=== PATIENT | male | born 1955 | race Caucasian/White ===

== ENCOUNTER 2017-04-04 16:18 | Inpatient (IN) ==
[2017-04-04] MEDS ORDERED: IOPAMIDOL 100 ML BOTTLE IV ONE (16:19)
[2017-04-04] MEDS ORDERED: 0.9 % SODIUM CHLORIDE 1,000 ML IV ONE ×2 (16:35→19:22)
--- NOTE | 2017-04-04 16:43 | Emergency Department Note ---
SOB HPI - General Chief Complaint: Shortness of Breath/Dyspnea Stated Complaint: Shortness of breath Time Seen by Provider: 04/04/17 16:36 - History of Present Illness Patient was sent over from [facility] for evaluation for admission for pneumonia. He is an ill for 20 days. He actually has not had much cough but he has an infiltrate on x-ray. His O2 sat is been 89. He did get some antibiotics last night and today it sounds like perhaps Rocephin IM and Zithromax. Also sounds like he was also given some IV antibiotics today. he had persistent fever. General just does not feel well. No much chest pain. No nausea or vomiting. - Related Data Home Medications Medication Instructions Recorded Confirmed Mercaptopurine 50 mg PO BID 04/04/17 04/04/17 Mesalamine [Asacol Hd] 800 mg PO BID 04/04/17 04/04/17 Metoprolol Tartrate [Lopressor] 25 mg PO DAILY 04/04/17 04/04/17 Omeprazole 20 mg PO DAILY 04/04/17 04/04/17 Verapamil HCl [Verapamil ER] 240 mg PO DAILY 04/04/17 04/04/17 Allergies Allergy/AdvReac Type Severity Reaction Status Date / Time No Known Drug Allergies Allergy Verified 04/04/17 16:22 Review of Systems All systems ED: reviewed and negative except as stated. Past Medical History - Past Medical History Medical history: Reports: other (Guillain-Jacob syndrome Souza's esophagus Crohn's disease.) Surgical history ED: Reports: orthopedic, other (Knee), other (Colonoscopy and EGD) - Social History smoking status: Never smoker Physical Exam - General Limitations: no limitations General appearance: alert, in no apparent distress - Head Head exam: atraumatic, normocephalic - Eye Eye exam: Present: normal appearance - ENT ENT exam: normal exam - Neck Neck exam: Present: normal inspection - Chest Chest inspection: Present: normal inspection - Respiratory Respiratory exam: Present: other (Scattered rhonchi) - Cardiovascular Cardiovascular exam: Present: regular rate, normal rhythm, normal heart sounds - Abdominal Exam Abdominal exam: Present: soft. Absent: distention, tenderness - Neurological Exam Neurological exam: Present: alert - Psychiatric Psychiatric exam: Present: normal affect, normal mood - Skin Skin exam: Present: warm, dry, intact Course Vital Signs Temperature 98.2 F 04/04/17 16:20 Pulse Rate 111 H 04/04/17 16:20 Respiratory Rate 20 04/04/17 16:20 Blood Pressure 132/76 04/04/17 16:20 Pulse Oximetry (%) 87 L 04/04/17 16:20 Temperature 99.8 F H 04/04/17 19:26 Pulse Rate 123 H 04/04/17 20:01 Respiratory Rate 23 H 04/04/17 20:01 Blood Pressure 147/74 04/04/17 20:01 Pulse Oximetry (%) 97 04/04/17 20:01 Shortness of Breath/Dyspnea - MDM Narrative Medical decision making narrative: CT scan confirms severe right-sided pneumonia. Patient will be admitted to the hospital by Dr. Doshi - Lab Data Lab results reviewed: Yes I reviewed the patient's lab results. Result diagrams: 04/04/17 17:13 04/04/17 17:13 Lab Results 04/04/17 04/04/17 04/04/17 Range/Units 17:13 17:13 17:13 WBC 3.3 L (4.5-11.0) K/mcL RBC 3.53 L (4.50-5.90) M/mcL Hgb 11.8 L (13.5-16.5) g/dL Hct 34.4 L (41.0-55.0) % POC Hct (41.0-55.0) % MCV 97.4 (80.0-100.0) fL MCH 33.3 (26.0-34.0) pg MCHC 34.2 (31.0-36.0) g/dL RDW 16.5 H (11.5-14.5) % Plt Count 131 L (140-440) K/mcL MPV 12.6 H (7.4-10.4) fL Gran % 82.0 H (38.0-78.0) % Lymph % (Auto) 12.1 L (15.5-49.0) % Grant % (Auto) 5.7 (1.0-12.0) % Eos % (Auto) 0.1 (0.0-7.0) % Baso % (Auto) 0.1 (0.0-2.0) % Gran # 2.7 (1.8-8.0) K/mcL Lymph # (Auto) 0.4 L (1.5-4.8) K/mcL Grant # (Auto) 0.2 (0.1-0.9) K/mcL Eos # (Auto) 0 (0.0-0.7) K/mcL Baso # (Auto) 0 (0.0-0.3) K/mcL VBG Lactic Acid 1.3 (0.5-2.2) mmol/L POC Sodium (133-145) mmol/L Sodium 133 (133-145) mmol/L POC Potassium (3.3-5.1) mmol/L Potassium 3.8 (3.3-5.1) mmol/L POC Chloride (96-108) mmol/L Chloride 98 (96-108) mmol/L Carbon Dioxide 23 (22-30) mmol/L POC Total CO2 (22-30) mmol/L Anion Gap 12.0 (8-16) POC BUN (6-20) mg/dl BUN 16 (6-20) mg/dl Creatinine 0.9 (0.7-1.2) mg/dl POC Creatinine (0.7-1.2) mg/dl GFR Calculation 93 Glucose 102 (70-105) mg/dL POC Glucose (70-105) mg/dL Calcium 8.8 (8.6-10.4) mg/dl POC WB Ioniz Calcium (1.16-1.32) mmol/L Total Bilirubin 1.6 H (0.0-1.0) mg/dL AST 143 H (0-37) U/l ALT 176 H (0-40) U/l Alkaline Phosphatase 343 H (39-117) U/L Total Protein 6.2 (5.9-8.4) gm/dL Albumin 2.7 L (3.2-5.2) gm/dL Globulin 3.5 (2.2-3.7) gm/dL Albumin/Globulin Ratio 0.8 L (1.0-2.3) 04/04/17 Range/Units 17:57 WBC (4.5-11.0) K/mcL RBC (4.50-5.90) M/mcL Hgb (13.5-16.5) g/dL Hct (41.0-55.0) % POC Hct 38.0 L (41.0-55.0) % MCV (80.0-100.0) fL MCH (26.0-34.0) pg MCHC (31.0-36.0) g/dL RDW (11.5-14.5) % Plt Count (140-440) K/mcL MPV (7.4-10.4) fL Gran % (38.0-78.0) % Lymph % (Auto) (15.5-49.0) % Grant % (Auto) (1.0-12.0) % Eos % (Auto) (0.0-7.0) % Baso % (Auto) (0.0-2.0) % Gran # (1.8-8.0) K/mcL Lymph # (Auto) (1.5-4.8) K/mcL Grant # (Auto) (0.1-0.9) K/mcL Eos # (Auto) (0.0-0.7) K/mcL Baso # (Auto) (0.0-0.3) K/mcL VBG Lactic Acid (0.5-2.2) mmol/L POC Sodium 135 (133-145) mmol/L Sodium (133-145) mmol/L POC Potassium 3.8 (3.3-5.1) mmol/L Potassium (3.3-5.1) mmol/L POC Chloride 101 (96-108) mmol/L Chloride (96-108) mmol/L Carbon Dioxide (22-30) mmol/L POC Total CO2 23 (22-30) mmol/L Anion Gap (8-16) POC BUN 15 (6-20) mg/dl BUN (6-20) mg/dl Creatinine (0.7-1.2) mg/dl POC Creatinine 0.8 (0.7-1.2) mg/dl GFR Calculation Glucose (70-105) mg/dL POC Glucose 96 (70-105) mg/dL Calcium (8.6-10.4) mg/dl POC WB Ioniz Calcium 1.18 (1.16-1.32) mmol/L Total Bilirubin (0.0-1.0) mg/dL AST (0-37) U/l ALT (0-40) U/l Alkaline Phosphatase (39-117) U/L Total Protein (5.9-8.4) gm/dL Albumin (3.2-5.2) gm/dL Globulin (2.2-3.7) gm/dL Albumin/Globulin Ratio (1.0-2.3) - Radiology Data Radiology results reviewed: Yes I reviewed the patient's radiology results. Disposition Pt seen by [facility]/PA only: No Clinical Impression: Community acquired pneumonia Disposition: Xfer As Inpt ([facility]) Condition: Good Time of Disposition: 20:30
--- NOTE | 2017-04-04 17:38 | XRay Report ---
CLINICAL INFORMATION: Shortness of breath COMPARISON: None. FINDINGS: Heart size, mediastinum and pulmonary vessels are normal. Is minor bibasilar atelectasis. Tiny bilateral pleural effusions noted IMPRESSION: Minor bibasilar atelectasis and small bilateral pleural effusions. Please consider pulmonary embolus Interpreted and Authenticated by: Sandeep Henley 04/04/17
[2017-04-04 17:56] LABS: ALT/SGPT 176 U/l (0-40); Albumin 2.7 gm/dL (3.2-5.2); Albumin/Globulin Ratio 0.8 (1.0-2.3); Alkaline Phosphatase 343 U/L (39-117); Blood Urea Nitrogen 16 mg/dl (6-20)
[2017-04-04] MEDS ORDERED: ACETAMINOPHEN 325 MG TABLET PO ONE ×2 (17:59→18:06)
[2017-04-04 18:21] LABS: Basophils # (Auto) 0 K/mcL (0.0-0.3); Basophils % (Auto) 0.1 % (0.0-2.0); Eosinophils # (Auto) 0 K/mcL (0.0-0.7); Eosinophils % (Auto) 0.1 % (0.0-7.0); Lymphocytes # (Auto) 0.4 K/mcL (1.5-4.8); Lymphocytes % (Auto) 12.1 % (15.5-49.0); Mean Cell Volume 97.4 fL (80.0-100.0); Mean Corpuscular HGB Conc 34.2 g/dL (31.0-36.0); Mean Corpuscular Hemoglobin 33.3 pg (26.0-34.0); Monocytes # (Auto) 0.2 K/mcL (0.1-0.9); Monocytes % (Auto) 5.7 % (1.0-12.0); Platelet Count 131 K/mcL (140-440); RBC 3.53 M/mcL (4.50-5.90); Red Cell Distribution Width 16.5 % (11.5-14.5)
[2017-04-04] MEDS ORDERED: IPRATROPIUM/ALBUTEROL 3 ML AMPUL.NEB NEB ONE (18:47)
[2017-04-04] MEDS ORDERED: IBUPROFEN 800 MG TABLET PO ONE (19:26)
[2017-04-04] MEDS ORDERED: IBUPROFEN 600 MG TABLET PO ONE (19:28)
[2017-04-04] MEDS ORDERED: IBUPROFEN 200 MG TABLET PO ONE (19:33)
--- NOTE | 2017-04-04 19:33 | Cat Scan Report ---
CLINICAL INFORMATION: Cough and chest pain COMPARISON: None TECHNIQUE: Axial images obtained through the chest. 80 cc intravenous contrast administration was administered, and scanning was performed during pulmonary arterial phase. Sagittally and coronally reformatted images were obtained. MIP reformatted images. FINDINGS: Mediastinal windows show the pulmonary arteries are suboptimally opacified, but no evidence of embolus. Thoracic aorta is unremarkable. The heart is borderline enlarged with scattered atherosclerotic plaque in the coronary arteries. Soft tissues are grossly normal. There is no adenopathy in the mediastinal, hilar or axillary regions The thyroid is normal. Pulmonary parenchymal windows show moderate sized patchy groundglass infiltrates in the peripheral upper, right middle and lower lobes. Small bilateral pleural effusions. IMPRESSION: Moderate sized patchy alveolar infiltrates in the peripheral upper, right middle and lower lobes. This is likely bacterial infection but could indicate aspiration. No evidence of pulmonary embolus Interpreted and Authenticated by: Sandeep Henley 04/04/17
[2017-04-04] MEDS ORDERED: PIPERACILLIN SODIUM/TAZOBACTAM 3.375 GM in DEXTROSE 5% IN WATER 50 ML IV ONE (19:41)
[2017-04-04] MEDS ORDERED: LEVOFLOXACIN 500 MG/100 ML BAG IV ONE (19:41)
[2017-04-04] MEDS ORDERED: VANCOMYCIN 1,000 MG in 0.9 % SODIUM CHLORIDE 250 ML IV ONE (19:41)
--- NOTE | 2017-04-04 21:03 | Internal Med History&Physical ---
Medical - H&P: HPI Patient information: Note initiated : 04/04/17 at 8:58 pm Service Date, if different from initiated Date: [] Patient: Matt Jin a 62 y/o M admitted on for Shortness of breath. Chief Complaint: [] History of present illness: Mr. Jin is a 62 year old Male with h/o crohns disease who presents to the ER with complaints of not feeling well for last approximately 20 days. The patient notes that his symptoms started as subjective sensation of not feeling well, low grade temperature which would respond to tylenol and preet shoulder rt > left soreness. The patient symptoms progrossively got worse and he developed some dry cough. The patient was supposedly seen by his PCP who did some blood work and did not find anything abnormal. Thinking this is just viral syndrome advised patient rest. The patient condition worsened and he started to have fever with chills and fatigue. The patient was seen at [facility] [place] where he had Chest x ray read as atelectasis vs pna, he was given zithromax and IM rocephin yesterday, the patient did not improve and went back to [facility], the patient was then asked to come to the ER for further evaluation The patient labs showed some mildly low wbc, mild anemia and mild thrombocytopenia, 82% neurtophils, normal basic, but elevated lft, patient has normal lactic acid. In the ER the patient became febrile and he was also hypoxic on presentaiton with HR in 10-130 Initial CXR was reported as negative, CTA was neg fo PE but positive for pna on the ight side, The patient was admitted to the hospital for further management I explained to the patient, his and the son, that the patient is sick given his increased oxygen needs, elevated heart rate, as well as immunocompromised status. Also the fact that he has been sick for a while. Explained that patient may get worse before he gets better and they are ok with intubating the patient if needed. However should the patients condition worsen, they would prefer we transfer the patient to [place] for further management. Review of systems: CONSTITUTIONAL: No weight loss, present fever/ chills/ weakness and fatigue. HEENT: Eyes: No visual loss, Prsent chr blurred vision, NO double vision or yellow sclerae. Ears, Nose, Throat: No hearing loss, sneezing, congestion, runny nose or sore throat. SKIN: No rash or itching. CARDIOVASCULAR: No chest pain, chest pressure or chest discomfort. No palpitations or edema. RESPIRATORY: No shortness of breath, but has dry cough no sputum. GASTROINTESTINAL: No nausea, vomiting or diarrhea , but has chronic constipation. No abdominal pain or blood in stools No Siabelle. GENITOURINARY: Denies Burning on urination. Blood in urine, or foul smelling urine NEUROLOGICAL: has chr headaches, some dizziness, No syncope or paralysis,no tremors,no numbness. No change in bowel or bladder control. MUSCULOSKELETAL: No muscle, back pain, joint pain or stiffness. (shoulder soreness preet, right > left) HEMATOLOGIC: No bleeding or bruising. No enlarged nodes PSYCHIATRIC: No depression , but does have anxiety. ENDOCRINOLOGIC: No reports of sweating, cold or heat intolerance. No polyuria or polydipsia. ALLERGIES: No hives, eczema or rhinitis. Skin: No rash, no jaundice, cyanosis or pallor. Medical - H&P: PMH Medical history: crohns disease htn barrets esophagus h/o GBS syndrome Surgical history: Hernia s knee sx Pertinent family history: dad with multiple aneurysms Mom iwth parkinsons disase Brother Liver / pancras not working,on liver transplant list? Social history: lives with denies smoking etoh 2-3 time a week denies thc use or any other substance abuse. Medical - H&P: Meds Home Medications Medication Instructions Recorded Confirmed Type Mercaptopurine 50 mg PO BID 04/04/17 04/04/17 History Mesalamine [Asacol Hd] 800 mg PO BID 04/04/17 04/04/17 History Metoprolol Tartrate [Lopressor] 25 mg PO DAILY 04/04/17 04/04/17 History Omeprazole 20 mg PO DAILY 04/04/17 04/04/17 History Verapamil HCl [Verapamil ER] 240 mg PO DAILY 04/04/17 04/04/17 History Allergies Allergy/AdvReac Type Severity Reaction Status Date / Time No Known Drug Allergies Allergy Verified 04/04/17 16:22 Medical - H&P: Exam - Constitutional Vitals: Temp Pulse Resp BP Pulse Ox 99.8 F H 123 H 23 H 147/74 97 04/04/17 19:26 04/04/17 20:01 04/04/17 20:01 04/04/17 20:01 04/04/17 20:01 Exam: GENERAL: The patient is a well-developed, well-nourished in no apparent distress. Is alert and oriented x3. VITAL SIGNS: Reviewed and as noted elsewhere. HEENT: Head is normocephalic and atraumatic. Extraocular muscles are intact. Pupils are equal, round, and reactive to light. Nares appeared normal. Mouth appears any without lesions. Mucous membranes are moist. NECK: Normal to inspection, Supple, No lymphadenopathy or thyromegaly. LUNGS: Air entry equal on both sides, no wheezing, crackles or rhonchi noted. No accessory muscles of respiration, tachypenic breathing HEART: tachycardic rate and rhythm normal, S1 and S2 heard, no Gallop, S3 or Rub Noted, No Gross murmur heard. ABDOMEN: Soft, nontender, and nondistended. Positive bowel sounds. No hepatosplenomegaly was noted. EXTREMITIES: No cyanosis, clubbing, rash, lesions or edema. NEUROLOGIC: Cranial nerves II through XII are grossly intact. Motor and Sensory System Grossly Intact PSYCHIATRIC: Normal affect, Normal Mood. Appropriate Behavior. SKIN: No ulceration or wounds noted, No jaundice, No rash noted. Medical - H&P: Reslt - Labs CBC & Chem 7: 04/04/17 17:13 04/04/17 17:13 Labs: Short CBC 04/04/17 Range/Units 17:13 WBC 3.3 L (4.5-11.0) K/mcL Hgb 11.8 L (13.5-16.5) g/dL Hct 34.4 L (41.0-55.0) % Plt Count 131 L (140-440) K/mcL BMP 04/04/17 17:13 Sodium 133 Potassium 3.8 Chloride 98 Carbon Dioxide 23 BUN 16 Creatinine 0.9 Glucose 102 Calcium 8.8 Liver Function 04/04/17 Range/Units 17:13 Total Bilirubin 1.6 H (0.0-1.0) mg/dL AST 143 H (0-37) U/l ALT 176 H (0-40) U/l Alkaline Phosphatase 343 H (39-117) U/L Albumin 2.7 L (3.2-5.2) gm/dL Medical - H&P: A/P (1) Current visit: No (2) Current visit: No (3) Current visit: No (4) Current visit: No (5) Community acquired pneumonia Current visit: Yes Status: Acute - Narrative A/P Narrative: A/P Acute hypoxic Resp failure/ Community Acquired pneumonia: Was given rocephin and zithromax as outpatient but did nto respond well, given his immunocompromised status, will use broad spectrum abx, vanco/ zosyn and zithromax Check for urine legionella, mycoplasma On 4-5L oxygen at this time, consider bipap if hypoxia worsens, ok to intubateyd if in resp distress. Send blood cx, sputum cx, sputum for PCP pna (given immunocompromised status) RT to induce sputum. Deescalate antibiotics if cultures positive. Sepsis: Due to PNA. IV ABX and fluids, bp is normal, but HR is elevated, pt is febrile, hopefully HR will improve with fluids, and improvement in fever. Monitor closely. Lactic acid is normal. BAnds present on labs done outside Abnormal liver function test: ast, alt and alk phos are all elevated, pt unaware of any previous abnl labs. Will get liver usg in AM to r/o any liver pathology. HTN: Hold bp meds for now, resume once patient is hemodynamically stable Crohns disease: Hold immunosuppresant drugs for now, resume once infectin is better controlled Pancytopenia: patient had normal platelts few days ago, this is likely secondary to his sepsis, likely some low counts secondary to immunosuppresants. DVT hep sq Full code Regular diet
[2017-04-04] MEDS ORDERED: NALOXONE HCL 0.4 MG/ML VIAL IV PRN (21:23)
[2017-04-04] MEDS ORDERED: ACETAMINOPHEN 325 MG TABLET PO PRN (21:23)
[2017-04-04] MEDS ORDERED: VANCOMYCIN PER PHARMACY IV SCH (21:23)
[2017-04-04] MEDS ORDERED: ONDANSETRON 4 MG/2 ML VIAL IV PRN (21:23)
[2017-04-04] MEDS: IPRATROPIUM/ALBUTEROL 3 ML AMPUL.NEB NEB SCH (23:15)
[2017-04-04] MEDS: 0.9 % SODIUM CHLORIDE 1,000 ML IV SCH (23:16)
[2017-04-04] MEDS: HEPARIN 5,000 UNIT/ML VIAL SQ SCH (23:17)
[2017-04-05] MEDS ORDERED: PIPERACILLIN SODIUM/TAZOBACTAM 3.375 GM VIAL IV ONE ×2 (00:34→05:52)
[2017-04-05] MEDS: PIPERACILLIN SODIUM/TAZOBACTAM 3.375 GM in DEXTROSE 5% IN WATER 50 ML IV SCH ×4 (00:38→18:34)
[2017-04-05] MEDS ORDERED: IBUPROFEN 200 MG TABLET PO PRN (02:27)
[2017-04-05] MEDS ORDERED: ACETAMINOPHEN 1,000 MG/100 ML BOTTLE IV ONE (02:28)
[2017-04-05] MEDS: IPRATROPIUM/ALBUTEROL 3 ML AMPUL.NEB NEB SCH ×6 (02:34→22:42)
[2017-04-05] MEDS ORDERED: IBUPROFEN 200 MG TABLET PO ONE (02:48)
[2017-04-05 06:13] LABS: Basophils # (Auto) 0 K/mcL (0.0-0.3); Basophils % (Auto) 0.3 % (0.0-2.0); Eosinophils # (Auto) 0 K/mcL (0.0-0.7); Eosinophils % (Auto) 0.8 % (0.0-7.0); Granulocytes % (Auto) 77.2 % (38.0-78.0); Lymphocytes # (Auto) 0.3 K/mcL (1.5-4.8); Mean Corpuscular HGB Conc 34.6 g/dL (31.0-36.0); Mean Corpuscular Hemoglobin 33.5 pg (26.0-34.0); Monocytes # (Auto) 0.2 K/mcL (0.1-0.9); Monocytes % (Auto) 9.7 % (1.0-12.0); Platelet Count 125 K/mcL (140-440); RBC 3.24 M/mcL (4.50-5.90); Red Cell Distribution Width 16.4 % (11.5-14.5)
[2017-04-05 06:31] LABS: ALT/SGPT 147 U/l (0-40); Albumin 2.6 gm/dL (3.2-5.2); Albumin/Globulin Ratio 0.9 (1.0-2.3); Alkaline Phosphatase 310 U/L (39-117); Bilirubin,Direct 1.1 mg/dL (0.0-0.3); Blood Urea Nitrogen 14 mg/dl (6-20); Gamma Glutamyl Transpeptidase 206 U/L (8-61); Magnesium 1.8 mg/dL (1.6-2.5); Uric Acid 2.8 mg/dL (2.5-8.0)
[2017-04-05] MEDS: PANTOPRAZOLE 40 MG TABLET PO SCH (07:09)
[2017-04-05] MEDS: VANCOMYCIN 1,000 MG in 0.9 % SODIUM CHLORIDE 250 ML IV SCH ×2 (09:16→20:51)
[2017-04-05] MEDS: AZITHROMYCIN 250 MG TABLET PO SCH (09:24)
[2017-04-05] MEDS: HEPARIN 5,000 UNIT/ML VIAL SQ SCH ×2 (09:24→20:52)
--- NOTE | 2017-04-05 10:02 | Ultrasound Report ---
CLINICAL INFORMATION: Abnormal LFTs COMPARISON: None. FINDINGS: Liver is diffusely hyperechoic compatible fatty change or other global parenchymal process. No focal hepatic lesions. Gallbladder and bile ducts are normal CBD is 3 mm. Pancreas is unremarkable. IMPRESSION: Hyperechoic liver compatible with fatty change or other diffuse parenchymal process. Interpreted and Authenticated by: Sandeep Henley 04/05/17
[2017-04-05] MEDS: 0.9 % SODIUM CHLORIDE 1,000 ML IV SCH ×2 (10:14→22:44)
[2017-04-05] MEDS ORDERED: POTASSIUM PHOSPHATE 40 MEQ in DEXTROSE 5% IN WATER 500 ML IV ONE (12:15)
--- NOTE | 2017-04-05 12:56 | XRay Report ---
CLINICAL INFORMATION: Abdominal distention COMPARISON: None. FINDINGS: The colon is mildly dilated and contains a moderate amount of gas. No wall thickening. Stomach and small bowel are grossly normal. No free air or soft tissue mass. No pathologic calcification IMPRESSION: Mild ileus Interpreted and Authenticated by: Sandeep Henley 04/05/17
[2017-04-05] MEDS: ACETAMINOPHEN 650 MG/65 ML BOTTLE IV PRN ×2 (13:00→20:52)
[2017-04-05] MEDS: KETOROLAC 15 MG/ML VIAL IV PRN (13:53)
--- NOTE | 2017-04-05 14:05 | Internal Med Progress Note ---
Medical - PN: Subj Patient information: Note initiated : 04/05/17 at 2:04 pm Patient: Matt Jin 62 y/o M admitted on 04/04/17 for Shortness of Breath/ Pneumonia. Interval history: April 04, 2017:History of present illness: Mr. Jin is a 62 year old Male with h/o crohns disease who presents to the ER with complaints of not feeling well for last approximately 20 days. The patient notes that his symptoms started as subjective sensation of not feeling well, low grade temperature which would respond to tylenol and preet shoulder rt > left soreness. The patient symptoms progrossively got worse and he developed some dry cough. The patient was supposedly seen by his PCP who did some blood work and did not find anything abnormal. Thinking this is just viral syndrome advised patient rest. The patient condition worsened and he started to have fever with chills and fatigue. The patient was seen at [facility] [place] where he had Chest x ray read as atelectasis vs pna, he was given zithromax and IM rocephin yesterday, the patient did not improve and went back to [facility], the patient was then asked to come to the ER for further evaluation The patient labs showed some mildly low wbc, mild anemia and mild thrombocytopenia, 82% neurtophils, normal basic, but elevated lft, patient has normal lactic acid. In the ER the patient became febrile and he was also hypoxic on presentaiton with HR in 10-130 Initial CXR was reported as negative, CTA was neg fo PE but positive for pna on the right side, The patient was admitted to the hospital for further management. I explained to the patient, his and the son, that the patient is sick given his increased oxygen needs, elevated heart rate, as well as immunocompromised status. Also the fact that he has been sick for a while. Explained that patient may get worse before he gets better and they are ok with intubating the patient if needed. However should the patients condition worsen, they would prefer we transfer the patient to [place] for further management. April 05: Today, the patient says he still feels quite fatigued. He may feel a little better than yesterday, but is not very convincing. He still has a very poor appetite. He notes he has had some occasional mild headaches recently, but those have mostly resolved. He denies neck stiffness. He denies recent earaches toothaches sinus symptoms or sore throat. He continues to have mild dyspnea with even minimal exertion. His cough has not been especially productive. He denies abdominal pain, nausea or vomiting, but his notes that his abdomen seems more distended than usual. He has a history of chronic intermittent diarrhea related to Crohn's disease. He denies dysuria. Overnight, he has remained febrile, in spite of Tylenol and ibuprofen. T-max 104.4. He also remains fairly tachycardic and tachypneic. However he is maintaining O2 saturations with 4 or 5 L nasal cannula. He continues to be fairly pancytopenic on today's labs. Serum bicarbonate is fallen. Liver function tests remain elevated, but are slightly improved compared to yesterday. Mycoplasma pneumonia screen is negative. - Constitutional Vitals: Vital Signs Temp Pulse Resp BP Pulse Ox 102.4 F H 128 H 24 H 158/87 93 04/05/17 13:00 04/05/17 12:00 04/05/17 12:00 04/05/17 12:00 04/05/17 12:00 Period Temp Pulse Resp BP Sys/Soria Pulse Ox Last 24 Hr 98.5 F-106.0 F 110-129 22-36 118-158/73-87 88-95 Intake and Output 04/05/17 04/05/17 04/05/17 05:59 13:59 21:59 Intake Total 850 / 850 2265 / 2265 Output Total 1275 / 1275 Balance -425 / -425 2265 / 2265 Intake & Output: Intake & Output 04/05/17 04/05/17 04/05/17 05:59 13:59 21:59 Intake Total 850 / 850 2265 / 2265 Output Total 1275 / 1275 Balance -425 / -425 2265 / 2265 Intake: IV 50 / 50 1315 / 1315 Sodium Chloride 0.9% 1, 1000 / 1000 000 ml @ 100 mls/hr IV . Q10H [facility] Rx#:[id number] Oral 800 / 800 950 / 950 Output: Urine Catheter Amount 150 / 150 Void Amount 800 / 800 Stool 325 / 325 On exam, he is a well-developed well-nourished man, who appears fatigued, but is otherwise awake and alert and cooperative. He becomes dyspneic even with trying to sit up for a lung exam. Current temperature 101.7, heart rate 121, respiratory rate 25, blood pressure 158/87, O2 saturation 93% on 5 L nasal cannula Neck is supple without obvious lymphadenopathy or JVD. Cardiac exam shows regular rate and rhythm without obvious murmurs. Lungs: Show soft crackles in both lower lung steele posteriorly, but no significant wheezing or rhonchi. Breath sounds are rather decreased at the bases, more so on the right. There is no accessory muscle use. Abdomen: Is somewhat distended, but nontender. Bowel sounds are normoactive. Extremities: Show minimal edema. Skin exam: No rashes are noted. Neurologic exam: Is grossly nonfocal. Medical - PN: Obj Da - Labs CBC & Chem 7: 04/05/17 03:36 04/05/17 03:36 Labs: Abnormal Lab Results 04/05/17 04/05/17 03:36 03:36 WBC 2.4 L RBC 3.24 L Hgb 10.9 L Hct 31.5 L RDW 16.4 H Plt Count 125 L MPV 13.2 H Lymph % (Auto) 12.0 L Lymph # (Auto) 0.3 L Carbon Dioxide 19 L Calcium 8.3 L Phosphorus 1.9 L Total Bilirubin 1.7 H Direct Bilirubin 1.1 H GGT 206 H AST 132 H ALT 147 H Alkaline Phosphatase 310 H Lactate Dehydrogenase 348 H Total Protein 5.6 L Albumin 2.6 L Albumin/Globulin Ratio 0.9 L Triglycerides 254 H April 05: Abdominal x-ray: Shows mildly dilated colon consistent with mild ileus. April 04: CBC: White blood cell count is low at 3300, hemoglobin 11.8, hematocrit 34.4, RDW 16, platelets 131,000, differential shows 400 lymphocytes. Lactic acid was normal at 1.3 Liver function test: AST is elevated at 143, ALT 176, alkaline phosphatase 343, albumin 2.7 Mycoplasma IgM is negative. Legionella antigen is pending. Urine culture is negative so far. Sputum smear for pneumocystis esvin is negative. Stool screen for C. difficile is negative. Sputum culture is pending. Meds: Medications Hydrocodone Bitart/Acetaminophen ([place] 5/325mg) 1 tab PO Q4HP PRN PRN Reason: Pain Albuterol/Ipratropium (Duoneb) 3 ml NEB Q4HRT [facility] Last Admin: 04/05/17 11:09 Dose: 3 ml Azithromycin (Zithromax) 250 mg PO DAILY [facility] Stop: 04/08/17 09:01 Last Admin: 04/05/17 09:24 Dose: 250 mg Heparin Sodium (Porcine) (Heparin) 5,000 unit SQ Q12 [facility] Last Admin: 04/05/17 09:24 Dose: 5,000 unit Sodium Chloride (Sodium Chloride 0.9%) 1,000 mls @ 100 mls/hr IV .Q10H [facility] Stop: 04/06/17 03:22 Last Admin: 04/05/17 10:14 Dose: 100 mls/hr Piperacillin Sod/Tazobactam (Sod 3.375 gm/ Dextrose) 50 mls @ 100 mls/hr IV Q6H [facility] Last Admin: 04/05/17 12:10 Dose: 100 mls/hr Vancomycin HCl 1,000 mg/ (Sodium Chloride) 250 mls @ 250 mls/hr IV Q12H [facility] Last Admin: 04/05/17 09:16 Dose: 250 mls/hr Acetaminophen (Ofirmev) 650 mg in 65 mls @ 130 mls/hr IV Q6HP PRN PRN Reason: PAIN/FEVER > 101 Last Infusion: 04/05/17 13:57 Dose: Infused Potassium Phosphate 40 meq/ (Dextrose) 509.0909 mls @ 127.273 mls/hr IV ONCE ONE Stop: 04/05/17 16:14 Last Admin: 04/05/17 13:24 Dose: 127.273 mls/hr Ketorolac Tromethamine (Toradol) 15 mg IV Q6HP PRN PRN Reason: Fever Stop: 04/07/17 11:54 Last Admin: 04/05/17 13:53 Dose: 15 mg Naloxone HCl (Narcan) 0.1 mg IV Q2MIN PRN PRN Reason: Opiate Reversal Ondansetron HCl (Zofran) 4 mg IV Q4HP PRN PRN Reason: Nausea And Vomiting Pantoprazole Sodium (Protonix) 40 mg PO QAMAC [facility] Last Admin: 04/05/17 07:09 Dose: 40 mg Vancomycin HCl (Vancomycin Per Pharmacy) 1 order IV UD [facility] Medical - PN: A/P - Time Spent With Patient Total time spent is greater than 50% in coordination of care (as documented) at patient's floor/unit and/or counseling patient: Greater than 35 minutes - Narrative A/P Narrative: #1. Pulmonary/infectious disease - acute hypoxic Resp failure/ Community Acquired pneumonia: Was given rocephin and zithromax as outpatient but did nto respond well, given his immunocompromised status, will use broad spectrum abx, vanco/ zosyn and zithromax Screens for mycoplasma and pneumocystis are negative so far. Legionella is pending. -Again reviewed with the patient and his and son, that he could get worse before he gets better. They confirmed that he would accept ventilator management if he continues to decline. -Patient is pancytopenic, and chronically immunosuppressed regarding Crohn's medications. However his lymphocyte count is quite low, and we may want to screen for HIV as well. On 4-5L oxygen at this time, consider bipap if hypoxia worsens. Deescalate antibiotics if cultures positive. #2. Sepsis: - Due to PNA. Signs and symptoms appear to be improving. #3. GI. Abnormal liver function test: ast, alt and alk phos are all elevated, pt unaware of any previous abnl labs. -Labs are mildly improved today. -Liver sonogram shows possible diffuse parenchymal process such as fatty changes , but was otherwise fairly unremarkable. Crohns disease: -Hold immunosuppresant drugs for now, resume once infection is better controlled #4. HTN: - Hold bp meds for now, resume once patient is hemodynamically stable #5. Hematologic. Pancytopenia: patient had normal platelts few days ago, this is likely secondary to his sepsis, likely some low counts secondary to immunosuppresants. #6. DVT hep sq #7. CODE STATUS: Full code #8. Renal. Phosphorus is a bit on the low side today. CO2 is also low, and potassium is borderline low. -Add IV potassium phosphate. Do need to monitor. Approximately 35 minutes has been spent so far today, reviewing the patient's records and test results, interviewing and examining the patient, reviewing plan of care with the patient, his family, and staff. Medical - PN: Qual - VTE Deep Vein Thrombosis/Pulmonary Embolism Present on Admission: No
[2017-04-05] MEDS ORDERED: methylPREDNISolone SOD SUCC 125 MG/2 ML VIAL IV ONE (15:48)
[2017-04-05] MEDS: HYDROcodone/APAP 5/325MG TABLET PO PRN (16:04)
[2017-04-06] MEDS: PIPERACILLIN SODIUM/TAZOBACTAM 3.375 GM in DEXTROSE 5% IN WATER 50 ML IV SCH ×5 (00:31→23:27)
[2017-04-06] MEDS: IPRATROPIUM/ALBUTEROL 3 ML AMPUL.NEB NEB SCH ×6 (03:23→23:25)
[2017-04-06] MEDS: ACETAMINOPHEN 650 MG/65 ML BOTTLE IV PRN ×2 (05:14→21:59)
[2017-04-06 07:22] LABS: ALT/SGPT 141 U/l (0-40); Albumin 2.6 gm/dL (3.2-5.2); Albumin/Globulin Ratio 0.8 (1.0-2.3); Alkaline Phosphatase 336 U/L (39-117); Bilirubin,Direct 0.7 mg/dL (0.0-0.3); Blood Urea Nitrogen 12 mg/dl (6-20); Gamma Glutamyl Transpeptidase 225 U/L (8-61); Magnesium 2.1 mg/dL (1.6-2.5); Uric Acid 2.3 mg/dL (2.5-8.0)
[2017-04-06] MEDS: PANTOPRAZOLE 40 MG TABLET PO SCH (08:13)
[2017-04-06] MEDS: 0.9 % SODIUM CHLORIDE 10 ML SYRINGE IV SCH ×6 (08:15→21:49)
[2017-04-06 09:01] LABS: Mean Cell Volume 96.3 fL (80.0-100.0); Mean Corpuscular HGB Conc 35.2 g/dL (31.0-36.0); Mean Corpuscular Hemoglobin 33.9 pg (26.0-34.0); Platelet Count 124 K/mcL (140-440); RBC 3.36 M/mcL (4.50-5.90); Red Cell Distribution Width 16.5 % (11.5-14.5)
[2017-04-06 09:04] LABS: Anisocytosis 1+ (NONE SEEN); Band Neutrophils % 9 % (0-10); Lymphocytes % 8 % (15-49); Monocytes % (Manual) 5 % (1-12); Platelet Estimate DECREASED (NORMAL); RBC Morphology ABNORM (NORMAL); Segmented Neutrophils % 78 % (38-78)
--- NOTE | 2017-04-06 09:12 | XRay Report ---
CLINICAL INFORMATION: Follow infiltrate COMPARISON: 04/04/2017 FINDINGS: Heart size, mediastinum and pulmonary vessels are normal. There is now moderate alveolar airspace disease throughout both mid and lower lungs - more prominent on the left side. This is new since exam two days prior. No definite effusion IMPRESSION: Moderate sized alveolar airspace disease throughout the mid and lower lungs - slightly more prominent on left side. Consider ARDS or aspiration Interpreted and Authenticated by: Sandeep Henley 04/06/17
[2017-04-06] MEDS: HEPARIN 5,000 UNIT/ML VIAL SQ SCH ×2 (09:42→21:49)
[2017-04-06] MEDS: AZITHROMYCIN 250 MG TABLET PO SCH (09:42)
[2017-04-06] MEDS: VANCOMYCIN 1,500 MG in 0.9 % SODIUM CHLORIDE 500 ML IV SCH ×2 (10:14→21:48)
[2017-04-06] MEDS: KETOROLAC 15 MG/ML VIAL IV PRN ×2 (12:39→17:54)
--- NOTE | 2017-04-06 13:23 | Internal Med Progress Note ---
Medical - PN: Subj Patient information: Note initiated : 04/06/17 at 1:23 pm Patient: Matt Jin 62 y/o M admitted on 04/04/17 for Shortness of Breath/ Pneumonia. Interval history: April 04, 2017:History of present illness: Mr. Jin is a 62 year old Male with h/o crohns disease who presents to the ER with complaints of not feeling well for last approximately 20 days. The patient notes that his symptoms started as subjective sensation of not feeling well, low grade temperature which would respond to tylenol and preet shoulder rt > left soreness. The patient symptoms progrossively got worse and he developed some dry cough. The patient was supposedly seen by his PCP who did some blood work and did not find anything abnormal. Thinking this is just viral syndrome advised patient rest. The patient condition worsened and he started to have fever with chills and fatigue. The patient was seen at located within [facility] [place] where he had Chest x ray read as atelectasis vs pna, he was given zithromax and IM rocephin yesterday, the patient did not improve and went back to [facility], the patient was then asked to come to the ER for further evaluation The patient labs showed some mildly low wbc, mild anemia and mild thrombocytopenia, 82% neurtophils, normal basic, but elevated lft, patient has normal lactic acid. In the ER the patient became febrile and he was also hypoxic on presentaiton with HR in 10-130 Initial CXR was reported as negative, CTA was neg fo PE but positive for pna on the right side, The patient was admitted to the hospital for further management. I explained to the patient, his and the son, that the patient is sick given his increased oxygen needs, elevated heart rate, as well as immunocompromised status. Also the fact that he has been sick for a while. Explained that patient may get worse before he gets better and they are ok with intubating the patient if needed. However should the patients condition worsen, they would prefer we transfer the patient to [place] for further management. April 05: Today, the patient says he still feels quite fatigued. He may feel a little better than yesterday, but is not very convincing. He still has a very poor appetite. He notes he has had some occasional mild headaches recently, but those have mostly resolved. He denies neck stiffness. He denies recent earaches toothaches sinus symptoms or sore throat. He continues to have mild dyspnea with even minimal exertion. His cough has not been especially productive. He denies abdominal pain, nausea or vomiting, but his notes that his abdomen seems more distended than usual. He has a history of chronic intermittent diarrhea related to Crohn's disease. He denies dysuria. Overnight, he has remained febrile, in spite of Tylenol and ibuprofen. T-max 104.4. He also remains fairly tachycardic and tachypneic. However he is maintaining O2 saturations with 4 or 5 L nasal cannula. He continues to be fairly pancytopenic on today's labs. Serum bicarbonate is fallen. Liver function tests remain elevated, but are slightly improved compared to yesterday. Mycoplasma pneumonia screen is negative. April 06: -Today, the patient says he is feeling better. He was placed on BiPAP yesterday afternoon for continued tachypnea, and his breathing settled down nicely afterwards. He does feel that he has quite a bit less dyspnea with exertion. He is not working as hard to breathe. Nurses note that his vital signs had all settled down pretty well, but seem to bump up when his family arrives. - Otherwise, he denies fever or chills, headaches or dizziness, chest pain or palpitations. He still has a cough, but is mostly nonproductive. He denies abdominal pain, nausea or vomiting. He continues to have intermittent loose stools. His says these are chronic, but he thinks they are more marked than usual. Sosa catheter is still in place, with a temperature probe. -We had a very difficult time keeping his fever down yesterday, and ultimately gave him IV steroids, IV Toradol, IV Tylenol, and a cooling blanket. This morning he only has a low-grade fever of 99.4. - Constitutional Vitals: Vital Signs Temp Pulse Resp BP Pulse Ox 99.4 F H 113 H 29 H 153/97 93 04/06/17 12:00 04/06/17 12:00 04/06/17 12:00 04/06/17 12:00 04/06/17 12:00 Period Temp Pulse Resp BP Sys/Soria Pulse Ox Last 24 Hr 97.1 F-105.2 F 87-128 17-40 115-166/71-128 90-96 Intake and Output 04/05/17 04/06/17 04/06/17 21:59 05:59 13:59 Intake Total 1504.0909 / 1504.0909 1215 / 1215 890 / 890 Output Total 1425 / 1425 1765 / 1765 60 / 60 Balance 79.0909 / 79.0909 -550 / -550 830 / 830 Weight 224 lb 9.6 oz Intake & Output: Intake & Output 04/05/17 04/06/17 04/06/17 21:59 05:59 13:59 Intake Total 1504.0909 / 1504.0909 1215 / 1215 890 / 890 Output Total 1425 / 1425 1765 / 1765 60 / 60 Balance 79.0909 / 79.0909 -550 / -550 830 / 830 Weight 224 lb 9.6 oz Intake: IV 874.0909 / 874.0909 1115 / 1115 550 / 550 Sodium Chloride 0.9% 1, 1000 / 1000 000 ml @ 100 mls/hr IV . Q10H [facility] Rx#:[id number] Zosyn 3.375 gm In 50 / 50 50 / 50 50 / 50 Dextrose 5% in Water 50 ml @ 100 mls/hr IV Q6H [facility] Rx#:[id number] Potassium Phosphate 40 509.0909 / 509.0909 Meq In Dextrose 5% in Water 500 ml @ 127.273 mls/hr IV ONCE ONE Rx#: [id number] Vancomycin 1,000 mg In 250 / 250 Sodium Chloride 0.9% 250 ml @ 250 mls/hr IV Q12H [facility] Rx#:[id number] Vancomycin 1,500 mg In 500 / 500 Sodium Chloride 0.9% 500 ml @ 333.3 mls/hr IV Q12H [facility] Rx#:[id number] Oral 630 / 630 100 / 100 340 / 340 Output: Urine Catheter Amount 1425 / 1425 1465 / 1465 60 / 60 Stool 300 / 300 Other: Meal Lunch Percent of Meal Consumed 25% Feeding Ability Independent # of times incontinent of 1 Bowels Currently, temperature 99.4, heart rate 113, respiratory rate 23, blood pressure 153/97, O2 saturation is 94% on 10 L oxygen mask. While on the BiPAP, 40% FiO2, O2 sats are 94%, with heart rate in the 80s and 90s, and respiratory rate around 21. When I met with him this morning, he was still on the BiPAP. He appeared quite comfortable. His and son are at the bedside. Neck is supple without obvious lymphadenopathy or JVD. Cardiac exam shows regular rate and rhythm, with a tachycardic rate. Lungs: Is generally decreased breath sounds throughout, but posteriorly I do not really hear much in the way of crackles or rhonchi. There is a soft expiratory wheeze noted in the left anterior chest. [place] abdomen is slightly distended, but nontender. Bowel sounds are rather high-pitched. Sosa catheter continues to drain somewhat dark [place]ry colored urine. Extremities show no significant edema. Neurologic exam is grossly nonfocal. Medical - PN: Obj Da - Labs CBC & Chem 7: 04/06/17 05:15 04/06/17 05:15 Labs: Abnormal Lab Results 04/06/17 04/06/17 04/05/17 05:15 05:15 03:36 WBC 3.2 L RBC 3.36 L Hgb 11.4 L Hct 32.4 L RDW 16.5 H Plt Count 124 L MPV 13.0 H Lymph % (Auto) Lymph # (Auto) Lymphocytes % 8 L Platelet Estimate Decreased A RBC Morphology Abnorm A Anisocytosis 1+ A Carbon Dioxide 19 L Creatinine 0.6 L Glucose 156 H Uric Acid 2.3 L Calcium 8.3 L Phosphorus 2.5 L 1.9 L Total Bilirubin 1.3 H 1.7 H Direct Bilirubin 0.7 H 1.1 H GGT 225 H 206 H AST 143 H 132 H ALT 141 H 147 H Alkaline Phosphatase 336 H 310 H Lactate Dehydrogenase 429 H 348 H Total Protein 5.6 L Albumin 2.6 L 2.6 L Albumin/Globulin Ratio 0.8 L 0.9 L Triglycerides 264 H 254 H 04/05/17 03:36 WBC 2.4 L RBC 3.24 L Hgb 10.9 L Hct 31.5 L RDW 16.4 H Plt Count 125 L MPV 13.2 H Lymph % (Auto) 12.0 L Lymph # (Auto) 0.3 L Lymphocytes % Platelet Estimate RBC Morphology Anisocytosis Carbon Dioxide Creatinine Glucose Uric Acid Calcium Phosphorus Total Bilirubin Direct Bilirubin GGT AST ALT Alkaline Phosphatase Lactate Dehydrogenase Total Protein Albumin Albumin/Globulin Ratio Triglycerides April 06: Sputum culture from April 02: This is growing "mold". April 05: Abdominal x-ray: Shows mildly dilated colon consistent with mild ileus. April 04: CBC: White blood cell count is low at 3300, hemoglobin 11.8, hematocrit 34.4, RDW 16, platelets 131,000, differential shows 400 lymphocytes. Lactic acid was normal at 1.3 Liver function test: AST is elevated at 143, ALT 176, alkaline phosphatase 343, albumin 2.7 Mycoplasma IgM is negative. Legionella antigen is pending. Urine culture is negative so far. Sputum smear for pneumocystis esvin is negative. Stool screen for C. difficile is negative. Sputum culture is pending. Meds: Medications Hydrocodone Bitart/Acetaminophen ([place] 5/325mg) 1 tab PO Q4HP PRN PRN Reason: Pain Last Admin: 04/05/17 16:04 Dose: 1 tab Albuterol/Ipratropium (Duoneb) 3 ml NEB Q4HRT [facility] Last Admin: 04/06/17 11:41 Dose: 3 ml Azithromycin (Zithromax) 250 mg PO DAILY [facility] Stop: 04/08/17 09:01 Last Admin: 04/06/17 09:42 Dose: 250 mg Heparin Sodium (Porcine) (Heparin) 5,000 unit SQ Q12 [facility] Last Admin: 04/06/17 09:42 Dose: 5,000 unit Piperacillin Sod/Tazobactam (Sod 3.375 gm/ Dextrose) 50 mls @ 100 mls/hr IV Q6H [facility] Last Admin: 04/06/17 12:34 Dose: 100 mls/hr Acetaminophen (Ofirmev) 650 mg in 65 mls @ 130 mls/hr IV Q6HP PRN PRN Reason: PAIN/FEVER > 101 Last Infusion: 04/06/17 05:45 Dose: Infused Vancomycin HCl 1,500 mg/ (Sodium Chloride) 500 mls @ 333.3 mls/hr IV Q12H [facility] Last Infusion: 04/06/17 12:20 Dose: Infused Ketorolac Tromethamine (Toradol) 15 mg IV Q6HP PRN PRN Reason: Fever Stop: 04/07/17 11:54 Last Admin: 04/06/17 12:39 Dose: 15 mg Naloxone HCl (Narcan) 0.1 mg IV Q2MIN PRN PRN Reason: Opiate Reversal Ondansetron HCl (Zofran) 4 mg IV Q4HP PRN PRN Reason: Nausea And Vomiting Pantoprazole Sodium (Protonix) 40 mg PO QAMAC [facility] Last Admin: 04/06/17 08:13 Dose: 40 mg Sodium Chloride (Saline Flush) 10 ml IV Q8 [facility] Last Admin: 04/06/17 12:35 Dose: 10 ml Vancomycin HCl (Vancomycin Per Pharmacy) 1 order IV UD [facility] Medical - PN: A/P - Time Spent With Patient Total time spent is greater than 50% in coordination of care (as documented) at patient's floor/unit and/or counseling patient: Greater than 35 minutes - Narrative A/P Narrative: #1. Pulmonary/infectious disease - acute hypoxic Resp failure/ Community Acquired pneumonia: Was given rocephin and zithromax as outpatient but did nto respond well, given his immunocompromised status, will use broad spectrum abx, vanco/ zosyn and zithromax. Screens for mycoplasma and pneumocystis are negative so far. Legionella is pending. Today, sputum culture is growing mold. I discussed this with the lab, and they will try to ID, and say that up will need to be send out for sensitivities. -I have also called Dr. De La Vega, of pulmonary, and reviewed the patient's case by phone. He suggests that we screen the patient sputum again for pneumocystis. We will also ask the lab to identify the mold, and any associated sensitivities. He also suggested I check a BNP to be sure there is no heart failure involved in the patient's hypoxia, and also screen for influenza, as it appears this was not done in the emergency room. -If these additional screens are not helpful, consider covering the patient for fungus with either Diflucan or itroconazole. -Again reviewed with the patient and his and son, that he could get worse before he gets better. They confirmed that he would accept ventilator management if he continues to decline. -Patient is pancytopenic, and chronically immunosuppressed regarding Crohn's medications. However his lymphocyte count is quite low, and we may want to screen for HIV as well. Continue BiPAP support for now. #2. Sepsis: - Due to PNA. Signs and symptoms improving. #3. GI. Abnormal liver function test: ast, alt and alk phos are all elevated, pt unaware of any previous abnl labs. It is unclear if he might have passive liver congestion. He is almost 5 L ahead on fluids. Check BNP today. -Liver sonogram shows possible diffuse parenchymal process such as fatty changes , but was otherwise fairly unremarkable. Crohns disease: -Hold immunosuppresant drugs for now, resume once infection is better controlled #4. HTN: - Hold bp meds for now, resume once patient is hemodynamically stable He continues to be quite tachycardic, and now that his pressure is fine, I will add back verapamil. Metoprolol is still on hold. #5. Hematologic. Pancytopenia: patient had normal platelets few days ago, this is likely secondary to his sepsis, likely some low counts secondary to immunosuppresants. #6. DVT hep sq #7. CODE STATUS: Full code #8. Renal. Phosphorus is a bit on the low side today. CO2 is also low, and potassium is borderline low. -Replaced with IV potassium phosphate. Do need to monitor. Approximately 45 minutes has been spent so far today, reviewing the patient's records and test results, interviewing and examining the patient, reviewing plan of care with the patient, his family, and staff, and reviewing the case with Dr. De La Vega of pulmonary, and then writing additional orders. Medical - PN: Qual - VTE Deep Vein Thrombosis/Pulmonary Embolism Present on Admission: No
[2017-04-06 16:07] LABS: proBNP 347.8 pg/ml (0-125)
[2017-04-06] MEDS: PSYLLIUM HUSK 6 GM PACKET PO SCH (16:32)
[2017-04-06 16:35] LABS: HIV1/2 AG/AB 4TH Generation NON-REACTIVE
[2017-04-06] MEDS: VANCOMYCIN 1,000 MG in 0.9 % SODIUM CHLORIDE 250 ML IV SCH (18:00)
[2017-04-06] MEDS ORDERED: FUROSEMIDE 20 MG/2 ML VIAL IV ONE ×2 (20:35→21:53)
[2017-04-07] MEDS ORDERED: methylPREDNISolone SOD SUCC 125 MG/2 ML VIAL IV ONE (00:15)
[2017-04-07] MEDS ORDERED: methylPREDNISolone SOD SUCC 125 MG/2 ML VIAL ONE (00:31)
[2017-04-07] MEDS: KETOROLAC 15 MG/ML VIAL IV PRN ×2 (00:37→11:26)
[2017-04-07] MEDS: HYDROcodone/APAP 5/325MG TABLET PO PRN ×2 (01:02→20:00)
[2017-04-07] MEDS: IPRATROPIUM/ALBUTEROL 3 ML AMPUL.NEB NEB SCH ×6 (03:03→22:56)
[2017-04-07] MEDS: PIPERACILLIN SODIUM/TAZOBACTAM 3.375 GM in DEXTROSE 5% IN WATER 50 ML IV SCH ×3 (05:22→18:03)
[2017-04-07] MEDS: 0.9 % SODIUM CHLORIDE 10 ML SYRINGE IV SCH ×6 (05:23→21:53)
[2017-04-07] MEDS: ACETAMINOPHEN 650 MG/65 ML BOTTLE IV PRN ×3 (05:34→21:57)
[2017-04-07 05:52] LABS: ALT/SGPT 176 U/l (0-40); Albumin 2.3 gm/dL (3.2-5.2); Albumin/Globulin Ratio 0.7 (1.0-2.3); Alkaline Phosphatase 318 U/L (39-117); Bilirubin,Direct 0.8 mg/dL (0.0-0.3); Blood Urea Nitrogen 16 mg/dl (6-20); Gamma Glutamyl Transpeptidase 237 U/L (8-61); Uric Acid 2.6 mg/dL (2.5-8.0)
[2017-04-07 06:12] LABS: Mean Cell Volume 95.1 fL (80.0-100.0); Mean Corpuscular Hemoglobin 32.4 pg (26.0-34.0); Platelet Count 132 K/mcL (140-440); RBC 3.51 M/mcL (4.50-5.90); Red Cell Distribution Width 16.6 % (11.5-14.5)
[2017-04-07 06:15] LABS: Anisocytosis 2+ (NONE SEEN); Band Neutrophils % 8 % (0-10); Basophils % (Manual) 1 % (0-2); Lymphocytes % 7 % (15-49); Monocytes % (Manual) 5 % (1-12); Ovalocytes FEW (NONE SEEN); Platelet Estimate DECREASED (NORMAL); RBC Morphology ABNORM (NORMAL); Segmented Neutrophils % 79 % (38-78)
[2017-04-07] MEDS: PSYLLIUM HUSK 6 GM PACKET PO SCH (09:07)
[2017-04-07] MEDS: PANTOPRAZOLE 40 MG TABLET PO SCH (09:07)
[2017-04-07] MEDS: AZITHROMYCIN 250 MG TABLET PO SCH (09:08)
[2017-04-07] MEDS: VERAPAMIL 120 MG TAB.XL.24H PO SCH (09:08)
[2017-04-07] MEDS: HEPARIN 5,000 UNIT/ML VIAL SQ SCH ×2 (09:09→20:00)
[2017-04-07] MEDS ORDERED: FUROSEMIDE 20 MG/2 ML VIAL IV ONE (09:13)
[2017-04-07] MEDS: VANCOMYCIN 2,000 MG in 0.9 % SODIUM CHLORIDE 500 ML IV SCH ×2 (10:26→20:00)
[2017-04-07] MEDS: VANCOMYCIN 1,500 MG in 0.9 % SODIUM CHLORIDE 500 ML IV SCH (10:53)
--- NOTE | 2017-04-07 11:57 | Internal Med Progress Note ---
Medical - PN: Subj Patient information: Note initiated : 04/07/17 at 11:56 am Patient: Matt Jin 62 y/o M admitted on 04/04/17 for Shortness of Breath/ Pneumonia. Interval history: April 04, 2017:History of present illness: Mr. Jin is a 62 year old Male with h/o crohns disease who presents to the ER with complaints of not feeling well for last approximately 20 days. The patient notes that his symptoms started as subjective sensation of not feeling well, low grade temperature which would respond to tylenol and preet shoulder rt > left soreness. The patient symptoms progrossively got worse and he developed some dry cough. The patient was supposedly seen by his PCP who did some blood work and did not find anything abnormal. Thinking this is just viral syndrome advised patient rest. The patient condition worsened and he started to have fever with chills and fatigue. The patient was seen at [facility] where he had Chest x ray read as atelectasis vs pna, he was given zithromax and IM rocephin yesterday, the patient did not improve and went back to [facility], the patient was then asked to come to the ER for further evaluation The patient labs showed some mildly low wbc, mild anemia and mild thrombocytopenia, 82% neurtophils, normal basic, but elevated lft, patient has normal lactic acid. In the ER the patient became febrile and he was also hypoxic on presentaiton with HR in 10-130 Initial CXR was reported as negative, CTA was neg fo PE but positive for pna on the right side, The patient was admitted to the hospital for further management. I explained to the patient, his and the son, that the patient is sick given his increased oxygen needs, elevated heart rate, as well as immunocompromised status. Also the fact that he has been sick for a while. Explained that patient may get worse before he gets better and they are ok with intubating the patient if needed. However should the patients condition worsen, they would prefer we transfer the patient to [facility] for further management. April 05: Today, the patient says he still feels quite fatigued. He may feel a little better than yesterday, but is not very convincing. He still has a very poor appetite. He notes he has had some occasional mild headaches recently, but those have mostly resolved. He denies neck stiffness. He denies recent earaches toothaches sinus symptoms or sore throat. He continues to have mild dyspnea with even minimal exertion. His cough has not been especially productive. He denies abdominal pain, nausea or vomiting, but his notes that his abdomen seems more distended than usual. He has a history of chronic intermittent diarrhea related to Crohn's disease. He denies dysuria. Overnight, he has remained febrile, in spite of Tylenol and ibuprofen. T-max 104.4. He also remains fairly tachycardic and tachypneic. However he is maintaining O2 saturations with 4 or 5 L nasal cannula. He continues to be fairly pancytopenic on today's labs. Serum bicarbonate is fallen. Liver function tests remain elevated, but are slightly improved compared to yesterday. Mycoplasma pneumonia screen is negative. April 06: -Today, the patient says he is feeling better. He was placed on BiPAP yesterday afternoon for continued tachypnea, and his breathing settled down nicely afterwards. He does feel that he has quite a bit less dyspnea with exertion. He is not working as hard to breathe. Nurses note that his vital signs had all settled down pretty well, but seem to bump up when his family arrives. - Otherwise, he denies fever or chills, headaches or dizziness, chest pain or palpitations. He still has a cough, but is mostly nonproductive. He denies abdominal pain, nausea or vomiting. He continues to have intermittent loose stools. His says these are chronic, but he thinks they are more marked than usual. Sosa catheter is still in place, with a temperature probe. -We had a very difficult time keeping his fever down yesterday, and ultimately gave him IV steroids, IV Toradol, IV Tylenol, and a cooling blanket. This morning he only has a low-grade fever of 99.4. April 07: The patient had a fairly restful night, although he continues to spike fevers at night. T-max last night was 102.8. He was treated with Toradol, Tylenol, and then Solu-Medrol and a cooling blanket. This morning temperature had dropped to 99.1. Chills have resolved as of this morning. The patient is sitting up in a chair this morning, and BiPAP has been removed and he is on oxygen by nasal cannula, and maintaining his sats well. He reports that he still feels fatigued, and really has very minimal appetite. Nurses are encouraging him to at least get boost supplements down, which she is cooperating with. We started him on a fiber supplement yesterday, and bowel movement is a little more firm today. He believes he has less dyspnea with exertion today, and definitely has minimal dyspnea at rest. He continues to have a mostly nonproductive cough. Otherwise, he denies headaches or dizziness, chest pain or palpitations, abdominal pain, nausea or vomiting. Sosa catheter continues in place. So far, are only positive culture is the mold that is growing from his sputum. ID and sensitivities are pending on this. - Constitutional Vitals: Vital Signs Temp Pulse Resp BP Pulse Ox 99 F 108 H 21 129/89 92 04/07/17 10:14 04/07/17 11:14 04/07/17 11:14 04/07/17 10:14 04/07/17 11:14 Period Temp Pulse Resp BP Sys/Soria Pulse Ox Last 24 Hr 99 F-102.8 F 55-131 16-44 122-164/72-120 86-100 Intake and Output 04/06/17 04/07/17 04/07/17 21:59 05:59 13:59 Intake Total 1070 / 1070 815 / 815 115 / 115 Output Total 900 / 900 1475 / 1475 800 / 800 Balance 170 / 170 -660 / -660 -685 / -685 Weight 226 lb Intake & Output: Intake & Output 04/06/17 04/07/17 04/07/17 21:59 05:59 13:59 Intake Total 1070 / 1070 815 / 815 115 / 115 Output Total 900 / 900 1475 / 1475 800 / 800 Balance 170 / 170 -660 / -660 -685 / -685 Weight 226 lb Intake: IV 50 / 50 615 / 615 115 / 115 Zosyn 3.375 gm In 50 / 50 50 / 50 50 / 50 Dextrose 5% in Water 50 ml @ 100 mls/hr IV Q6H [facility] Rx#:[id number] Vancomycin 1,500 mg In 500 / 500 Sodium Chloride 0.9% 500 ml @ 333.3 mls/hr IV Q12H [facility] Rx#:[id number] Oral 1020 / 1020 200 / 200 Output: Urine Catheter Amount 900 / 900 1175 / 1175 725 / 725 Stool 300 / 300 75 / 75 Other: Meal Dinner Percent of Meal Consumed 25% He is sitting in a chair, in no acute distress. He is on oxygen via facemask, and appears quite comfortable. However nurse's notes, that all vital signs are fairly normal when he is asleep, but when he awakens or has visitors, he becomes tachycardic and more tachypneic. Temperature is 99.1, heart rate 96, respiratory rate 26, blood pressure 123/74, O2 saturation is 97% on a 9 L oxygen mask Intake and output shows that he was about 1500 mL positive for yesterday, and about 5600 mL positive since admission. Weight has increased from 221 pounds to 226 pounds Neck is supple without obvious lymphadenopathy or JVD. Cardiac exam shows regular rate and rhythm, with a tachycardic rate. Lungs: Have some scattered crackles, but otherwise are mostly clear, without rhonchi or wheezes heard. Abdomen is soft and nontender. Extremities show minimal edema. Neurologic exam is grossly nonfocal. Medical - PN: Obj Da - Labs CBC & Chem 7: 04/07/17 04:10 04/07/17 04:10 Labs: Abnormal Lab Results 04/07/17 04/07/17 04/07/17 08:00 04:10 04:10 WBC 3.2 L RBC 3.51 L Hgb 11.4 L Hct 33.4 L RDW 16.6 H Plt Count 132 L MPV 13.8 H Lymph % (Auto) Lymph # (Auto) Seg Neutrophils % 79 H Lymphocytes % 7 L Platelet Estimate Decreased A RBC Morphology Abnorm A Poikilocytosis Occ A Anisocytosis 2+ A Ovalocytes Few A Carbon Dioxide Creatinine Glucose 144 H Uric Acid Calcium Phosphorus 2.5 L Total Bilirubin 1.4 H Direct Bilirubin 0.8 H GGT 237 H AST 168 H ALT 176 H Alkaline Phosphatase 318 H Lactate Dehydrogenase 433 H NT-Pro-B Natriuret Pep Total Protein 5.6 L Albumin 2.3 L Albumin/Globulin Ratio 0.7 L Triglycerides 331 H Vancomycin Trough 7.0 H 04/06/17 04/06/17 04/06/17 14:48 05:15 05:15 WBC 3.2 L RBC 3.36 L Hgb 11.4 L Hct 32.4 L RDW 16.5 H Plt Count 124 L MPV 13.0 H Lymph % (Auto) Lymph # (Auto) Seg Neutrophils % Lymphocytes % 8 L Platelet Estimate Decreased A RBC Morphology Abnorm A Poikilocytosis Anisocytosis 1+ A Ovalocytes Carbon Dioxide Creatinine 0.6 L Glucose 156 H Uric Acid 2.3 L Calcium Phosphorus 2.5 L Total Bilirubin 1.3 H Direct Bilirubin 0.7 H GGT 225 H AST 143 H ALT 141 H Alkaline Phosphatase 336 H Lactate Dehydrogenase 429 H NT-Pro-B Natriuret Pep 347.8 H Total Protein Albumin 2.6 L Albumin/Globulin Ratio 0.8 L Triglycerides 264 H Vancomycin Trough 04/05/17 04/05/17 03:36 03:36 WBC 2.4 L RBC 3.24 L Hgb 10.9 L Hct 31.5 L RDW 16.4 H Plt Count 125 L MPV 13.2 H Lymph % (Auto) 12.0 L Lymph # (Auto) 0.3 L Seg Neutrophils % Lymphocytes % Platelet Estimate RBC Morphology Poikilocytosis Anisocytosis Ovalocytes Carbon Dioxide 19 L Creatinine Glucose Uric Acid Calcium 8.3 L Phosphorus 1.9 L Total Bilirubin 1.7 H Direct Bilirubin 1.1 H GGT 206 H AST 132 H ALT 147 H Alkaline Phosphatase 310 H Lactate Dehydrogenase 348 H NT-Pro-B Natriuret Pep Total Protein 5.6 L Albumin 2.6 L Albumin/Globulin Ratio 0.9 L Triglycerides 254 H Vancomycin Trough April 06: Sputum culture from April 02: This is growing "mold". April 05: Abdominal x-ray: Shows mildly dilated colon consistent with mild ileus. April 04: CBC: White blood cell count is low at 3300, hemoglobin 11.8, hematocrit 34.4, RDW 16, platelets 131,000, differential shows 400 lymphocytes. Lactic acid was normal at 1.3 Liver function test: AST is elevated at 143, ALT 176, alkaline phosphatase 343, albumin 2.7 Mycoplasma IgM is negative. Legionella antigen is pending. Urine culture is negative so far. Sputum smear for pneumocystis esvin is negative. Stool screen for C. difficile is negative. Meds: Medications Hydrocodone Bitart/Acetaminophen (Chandler 5/325mg) 1 tab PO Q4HP PRN PRN Reason: Pain Last Admin: 04/07/17 01:02 Dose: 1 tab Albuterol/Ipratropium (Duoneb) 3 ml NEB Q4HRT [facility] Last Admin: 04/07/17 11:05 Dose: 3 ml Azithromycin (Zithromax) 250 mg PO DAILY [facility] Stop: 04/08/17 09:01 Last Admin: 04/07/17 09:08 Dose: 250 mg Heparin Sodium (Porcine) (Heparin) 5,000 unit SQ Q12 [facility] Last Admin: 04/07/17 09:09 Dose: 5,000 unit Piperacillin Sod/Tazobactam (Sod 3.375 gm/ Dextrose) 50 mls @ 100 mls/hr IV Q6H [facility] Last Infusion: 04/07/17 06:10 Dose: Infused Acetaminophen (Ofirmev) 650 mg in 65 mls @ 130 mls/hr IV Q6HP PRN PRN Reason: PAIN/FEVER > 101 Last Infusion: 04/07/17 06:05 Dose: Infused Vancomycin HCl 2,000 mg/ (Sodium Chloride) 500 mls @ 250 mls/hr IV Q12 [facility] Last Admin: 04/07/17 10:26 Dose: 250 mls/hr Naloxone HCl (Narcan) 0.1 mg IV Q2MIN PRN PRN Reason: Opiate Reversal Ondansetron HCl (Zofran) 4 mg IV Q4HP PRN PRN Reason: Nausea And Vomiting Pantoprazole Sodium (Protonix) 40 mg PO QAMAC [facility] Last Admin: 04/07/17 09:07 Dose: 40 mg Psyllium Hydrophilic Mucilloid (Metamucil) 6 gm PO DAILY [facility] Last Admin: 04/07/17 09:07 Dose: 6 gm Sodium Chloride (Saline Flush) 10 ml IV Q8 [facility] Last Admin: 04/07/17 11:28 Dose: 10 ml Vancomycin HCl (Vancomycin Per Pharmacy) 1 order IV UD [facility] Verapamil HCl (Calan Sr) 240 mg PO DAILY [facility] Last Admin: 04/07/17 09:08 Dose: 240 mg Medical - PN: A/P - Time Spent With Patient Total time spent is greater than 50% in coordination of care (as documented) at patient's floor/unit and/or counseling patient: 25 - 35 minutes - Narrative A/P Narrative: #1. Pulmonary/infectious disease -Patient presented with acute respiratory failure with hypoxia, due to pneumonia. He was not responding to outpatient treatment with Rocephin and Zithromax, so was admitted and treated with vancomycin, Zosyn, Zithromax, regarding his immunosuppressed status. -Over the first couple of days he had progressive respiratory insufficiency, which responded to aggressive treatment with BiPAP and other measures. He continues to spike high fevers at night, although last night's temperatures were lower than the day before. Etiology of his pneumonia and respiratory failure are still not entirely clear. Screens for mycoplasma and pneumocystis are negative so far. Legionella is pending. -sputum culture is growing mold. I discussed this with the lab, and they will try to ID, and say that up will need to be send out for sensitivities. -Case was discussed with Dr. De La Vega, of pulmonary, and reviewed the patient's case by phone. He suggests that we screen the patient sputum again for pneumocystis. We will also ask the lab to identify the mold, and any associated sensitivities. -BNP is only mildly elevated. -Rapid screens for influenza are negative. -Ideally, given his sputum culture we would treat him with an antifungal, but liver function is abnormal enough that I would worry that this would cause problems. Since we do not have infectious disease to help us here, I will ask for GI consultation to see if they have other ideas -Again reviewed with the patient and his and son, that he could get worse before he gets better. They confirmed that he would accept ventilator management if he continues to decline. -Regarding his pancytopenia, HIV screen is negative. -Regarding his continued nighttime fevers, we will screen for tuberculosis as well. He may also need further CT scanning to look for underlying malignancy. #2. Sepsis: - Due to PNA. Signs and symptoms improving. #3. GI. I had hoped elevated LFTs might be due to passive liver congestion. He was given Lasix, but has not diuresed significantly. Lasix was redosed today. He will need to continue with some degree of IV fluids, as oral intake is quite poor. -Liver sonogram shows possible diffuse parenchymal process such as fatty changes , but was otherwise fairly unremarkable. Crohns disease: -Hold immunosuppresant drugs for now, resume once infection is better controlled #4. HTN: -Verapamil was added back yesterday. Blood pressure is holding fine, but he continues to be intermittently tachycardic. Since BNP was not especially high, I have not ordered an echocardiogram at this time. #5. Hematologic. Pancytopenia: patient had normal platelets few days ago, this is likely secondary to his sepsis, likely some low counts secondary to immunosuppresants. #6. DVT hep sq #7. CODE STATUS: Full code #8. Renal. Phosphorus is a bit on the low side today. CO2 is also low, and potassium is borderline low. -Replaced with IV potassium phosphate. Do need to monitor. Approximately 35 minutes has been spent so far today, reviewing the patient's records and test results, interviewing and examining the patient, reviewing plan of care with the patient, his family, and staff,, and then writing additional orders. I also plan to call GI to review the case further. Medical - PN: Qual - VTE Deep Vein Thrombosis/Pulmonary Embolism Present on Admission: No
[2017-04-08] MEDS: PIPERACILLIN SODIUM/TAZOBACTAM 3.375 GM in DEXTROSE 5% IN WATER 50 ML IV SCH ×2 (00:30→05:30)
[2017-04-08] MEDS: HYDROcodone/APAP 5/325MG TABLET PO PRN (02:23)
[2017-04-08] MEDS ORDERED: IBUPROFEN 800 MG TABLET PO ONE (02:50)
[2017-04-08] MEDS: IPRATROPIUM/ALBUTEROL 3 ML AMPUL.NEB NEB SCH ×3 (02:53→11:10)
[2017-04-08] MEDS ORDERED: IBUPROFEN 600 MG TABLET PO ONE ×2 (03:09→12:18)
[2017-04-08] MEDS ORDERED: IBUPROFEN 200 MG TABLET PO ONE (03:10)
[2017-04-08] MEDS: 0.9 % SODIUM CHLORIDE 10 ML SYRINGE IV SCH ×2 (06:26→11:20)
[2017-04-08 07:24] LABS: ALT/SGPT 204 U/l (0-40); Albumin 2.4 gm/dL (3.2-5.2); Albumin/Globulin Ratio 0.8 (1.0-2.3); Alkaline Phosphatase 278 U/L (39-117); Bilirubin,Direct 0.6 mg/dL (0.0-0.3); Blood Urea Nitrogen 18 mg/dl (6-20); Gamma Glutamyl Transpeptidase 222 U/L (8-61); Magnesium 2.1 mg/dL (1.6-2.5); Uric Acid 2.9 mg/dL (2.5-8.0)
[2017-04-08 07:46] LABS: Basophils # (Auto) 0 K/mcL (0.0-0.3); Basophils % (Auto) 0.2 % (0.0-2.0); Eosinophils # (Auto) 0 K/mcL (0.0-0.7); Eosinophils % (Auto) 0.3 % (0.0-7.0); Granulocytes % (Auto) 76.2 % (38.0-78.0); Lymphocytes # (Auto) 0.5 K/mcL (1.5-4.8); Lymphocytes % (Auto) 15.7 % (15.5-49.0); Mean Cell Volume 95.3 fL (80.0-100.0); Mean Corpuscular Hemoglobin 33.3 pg (26.0-34.0); Monocytes # (Auto) 0.2 K/mcL (0.1-0.9); Monocytes % (Auto) 7.6 % (1.0-12.0); Platelet Count 108 K/mcL (140-440); RBC 3.21 M/mcL (4.50-5.90); Red Cell Distribution Width 16.9 % (11.5-14.5)
[2017-04-08] MEDS: PANTOPRAZOLE 40 MG TABLET PO SCH (07:47)
[2017-04-08] MEDS ORDERED: METOPROLOL TARTRATE 5 MG/5 ML VIAL IV ONE ×4 (08:00→09:32)
[2017-04-08] MEDS ORDERED: METOPROLOL TARTRATE 25 MG TABLET PO SCH (09:00)
[2017-04-08] MEDS: AZITHROMYCIN 250 MG TABLET PO SCH (09:07)
[2017-04-08] MEDS: PSYLLIUM HUSK 6 GM PACKET PO SCH (09:07)
[2017-04-08] MEDS: VERAPAMIL 120 MG TAB.XL.24H PO SCH (09:07)
[2017-04-08] MEDS: HEPARIN 5,000 UNIT/ML VIAL SQ SCH (09:07)
--- NOTE | 2017-04-08 09:09 | XRay Report ---
CLINICAL INFORMATION: Pneumonia COMPARISON: 04/06/2017 FINDINGS: Mild cardiomegaly is unchanged. Mediastinum is unremarkable. Large infiltrate in the left mid and lower lung has increased in size and density from x-ray two days ago. Vague infiltrate in the right mid lung and medial base also shows slight worsening. Tiny bilateral pleural effusions noted IMPRESSION: Large right mid and lower lung infiltrate worsening from exam two days prior. Small vague infiltrate in the right infrahilar region has also worsened. Interpreted and Authenticated by: Sandeep Henley 04/08/17
[2017-04-08] MEDS ORDERED: POTASSIUM CHLORIDE 40 MEQ in DEXTROSE 5% IN WATER 500 ML IV ONE (09:13)
[2017-04-08] MEDS ORDERED: LORazepam 2 MG/ML VIAL IV ONE (09:44)
[2017-04-08] MEDS ORDERED: CASPOFUNGIN ACETATE 70 MG in 0.9 % SODIUM CHLORIDE 250 ML IV ONE (09:48)
[2017-04-08] MEDS ORDERED: LORazepam 2 MG/ML VIAL ONE (09:48)
[2017-04-08] MEDS: ACETAMINOPHEN 650 MG/65 ML BOTTLE IV PRN (09:52)
[2017-04-08] MEDS ORDERED: DILTIAZEM 25 MG/5 ML VIAL IV ONE (10:08)
[2017-04-08] MEDS ORDERED: DILTIAZEM 125 MG in 0.9 % SODIUM CHLORIDE 100 ML IV SCH (10:15)
[2017-04-08] MEDS: VANCOMYCIN 2,000 MG in 0.9 % SODIUM CHLORIDE 500 ML IV SCH (11:20)
[2017-04-08] MEDS ORDERED: SODIUM CHLORIDE 0.9% IV SCH (11:30)
[2017-04-08] MEDS ORDERED: VORICONAZOLE IV SCH (11:30)
--- NOTE | 2017-04-08 12:24 | Transfer Summary ---
Transfer Discharge Sum: Prov Patient information: Note initiated : 04/08/17 at 12:22 pm Service Date, if different from initiated Date: [] Patient: Matt Jin 62 y/o M admitted on 04/04/17 for Shortness of Breath/ Pneumonia. Chief Complaint: [] Date of admission: 04/04/17 21:09 Discharge Date: 04/08/17 Admitting clinician: Jim Doshi Discharging clinician: Jim Doshi Receiving physician/facility: Dr Palmira Salinas, Pulmologist Transfer Discharge Sum: Diag - Discharge Diagnosis (1) Aspergillosis, with pneumonia Status: Acute (5) Community acquired pneumonia Status: Acute Transfer Discharge Sum: Med - Medications Active and Home Medications: Home Medications Mercaptopurine 50 mg PO BID 04/04/17 [History Confirmed 04/04/17] Mesalamine [Asacol Hd] 800 mg PO BID 04/04/17 [History Confirmed 04/04/17] Metoprolol Tartrate [Lopressor] 25 mg PO DAILY 04/04/17 [History Confirmed 04/04] Omeprazole 20 mg PO DAILY 04/04/17 [History Confirmed 04/04/17] Verapamil HCl [Verapamil ER] 240 mg PO DAILY 04/04/17 [History Confirmed ] Active Medications Hydrocodone Bitart/Acetaminophen (Lena 5/325mg) 1 tab PO Q4HP PRN PRN Reason: Pain Last Admin: 04/08/17 02:23 Dose: 1 tab Albuterol/Ipratropium (Duoneb) 3 ml NEB Q4HRT [facility] Last Admin: 04/08/17 11:10 Dose: Not Given Heparin Sodium (Porcine) (Heparin) 5,000 unit SQ Q12 [facility] Last Admin: 04/08/17 09:07 Dose: 5,000 unit Piperacillin Sod/Tazobactam (Sod 3.375 gm/ Dextrose) 50 mls @ 100 mls/hr IV Q6H [facility] Last Infusion: 04/08/17 06:05 Dose: Infused Acetaminophen (Ofirmev) 650 mg in 65 mls @ 130 mls/hr IV Q6HP PRN PRN Reason: PAIN/FEVER > 101 Last Infusion: 04/08/17 10:29 Dose: Infused Vancomycin HCl 2,000 mg/ (Sodium Chloride) 500 mls @ 250 mls/hr IV Q12 [facility] Last Infusion: 04/08/17 11:45 Dose: 0 mls/hr Potassium Chloride 40 meq/ (Dextrose) 520 mls @ 130 mls/hr IV ONCE ONE Stop: 04/08/17 13:12 Last Admin: 04/08/17 09:40 Dose: 130 mls/hr Caspofungin 50 mg/ Sodium (Chloride) 250 mls @ 250 mls/hr IV Q24H [facility] Diltiazem HCl 125 mg/ Sodium (Chloride) 125 mls @ 5 mls/hr IV Q12H AHSTYN; 5 MG/HR PRN Reason: Protocol Last Admin: 04/08/17 10:19 Dose: 5 mg/hr, 5 mls/hr Voriconazole 600 mg/ Sodium (Chloride) 250 mls @ 125 mls/hr IV ONCE [facility] Last Admin: 04/08/17 11:40 Dose: 125 mls/hr Metoprolol Tartrate (Lopressor) 25 mg PO QDAY [facility] Last Admin: 04/08/17 08:30 Dose: 25 mg Naloxone HCl (Narcan) 0.1 mg IV Q2MIN PRN PRN Reason: Opiate Reversal Ondansetron HCl (Zofran) 4 mg IV Q4HP PRN PRN Reason: Nausea And Vomiting Pantoprazole Sodium (Protonix) 40 mg PO QAMAC [facility] Last Admin: 04/08/17 07:47 Dose: 40 mg Psyllium Hydrophilic Mucilloid (Metamucil) 6 gm PO DAILY [facility] Last Admin: 04/08/17 09:07 Dose: 6 gm Sodium Chloride (Saline Flush) 10 ml IV Q8 [facility] Last Admin: 04/08/17 11:20 Dose: 10 ml Vancomycin HCl (Vancomycin Per Pharmacy) 1 order IV UD [facility] Verapamil HCl (Calan Sr) 240 mg PO DAILY [facility] Last Admin: 04/08/17 09:07 Dose: 240 mg Transfer Discharge Sum: Hosp Hospital course: Mr. Jin is a 62 year old Male with h/o Crohn disease who presents to the ER with complaints of not feeling well for last approximately 20 days. The patient notes that his symptoms started as subjective sensation of not feeling well, low grade temperature which would respond to Tylenol and preet shoulder rt > left soreness. The patient symptoms progressively got worse and he developed some dry cough. The patient was supposedly seen by his PCP who did some blood work and did not find anything abnormal. Thinking this is just viral syndrome advised patient rest. The patient condition worsened and he started to have fever with chills and fatigue. The patient was seen at [facility] [place] where he had Chest x ray read as atelectasis vs pna, he was given zithromax and IM rocephin yesterday, the patient did not improve and went back to [facility], the patient was then asked to come to the ER for further evaluation The patient labs showed some mildly low wbc, mild anemia and mild thrombocytopenia, 82% neutrophils, normal basic, but elevated lft, patient has normal lactic acid. In the ER the patient became febrile and he was also hypoxic on presentation with HR in 10-130 Initial CXR was reported as negative, CTA was neg fo PE but positive for pna on the right side, The patient was admitted to the hospital for further management. Pneumonia/Acute respiratory failure: Patient has PNA on X Ray and CT Scan, sputum cx grew usual oral secretions and Mold, The patient on admission was treated with IV vancomycin, IV zosyn as well as Azithromycin. Legionella pending , mycoplasma study was negative,HIV is negative, blood cultures have been negative. Induced Sputum was neg for PCP pneumonia. The patient has had high grade fevers, with T max of 105F and has needed constant use of tylenol, NSAIDS and cooling blankets, he has also received steroids x 2 to help with the fever with some improvement, Tmax today was 103. The patients chest x ray done today shows worsening of the patients pneumonia. The patient has needed bipap for maintaining oxygenation. ABG done today on 9-10 L oxygen shows ph 7.45/38/58. His present bipap settings are 14/10 fio2 60, rr 30 The patients labs otherwise show some lerma cytopenia, and normal renal f unction. He has abnormal liver function tests with elevation of ast/ alt/ alk phos. UG of the liver does show fatty infiltration. The patient also has been in Afib with RVR during the hospital stay, no h/o afib in the past, he is being rate controled with po/ IV prn metoprolol, this AM his HR was not responding to beta blockers so cardizem drip was started. Given that the patient respiratory status has worsened since admission, his X ray is worsening despite being on broad spectrum antibiotics and the fact that he is immunocompromised (mercaptopurine/ mesalmine for corhns). the patient was presented and graciously accepted for transfer to [facility] for further management. The patients immunosuppressants for his Cohrns have been held since admission. The patient has received 1 dose of caspofungin today, and one dose of voriconazole 6mg/kg today. The decision to continue treatment with these anti fungal agents will be left to the discretion of pulmonary /ID at the accepting facility. - Time Spent with Patient Total time spent providing and/or coordinating transfer services: Greater than 30 minutes Transfer Discharge Sum: Exam - Constitutional Vitals: Vital Signs Temp Pulse Resp BP BP Pulse Ox 04/08/17 11:47 103.0 F H 77 33 H 117/64 93 04/08/17 11:15 90 31 H 95 04/08/17 11:01 77 35 H 94 04/08/17 11:00 109 H 24 H 101/75 94 04/08/17 10:51 98.8 F 04/08/17 10:47 53 L 39 H 102/72 94 04/08/17 10:45 28 L 40 H 95 04/08/17 10:30 102.5 F H 32 L 29 H 93 04/08/17 10:29 102.8 F H 04/08/17 10:15 91 H 44 H 93 04/08/17 10:13 101.9 F H 105 H 51 H 151/95 94 04/08/17 10:00 101.3 F H 154 H 19 88 L 04/08/17 09:52 101.3 F H 04/08/17 09:30 100.2 F H 162 H 30 H 82 L 04/08/17 09:15 99.8 F H 145 H 28 H 98 04/08/17 09:01 99.6 F H 83 27 H 164/99 97 04/08/17 08:32 98.8 F 04/08/17 08:03 98.7 F 163 H 28 H 138/93 84 L 04/08/17 08:00 28 H 88 L 04/08/17 07:43 138 H 27 H 93 04/08/17 07:01 98.6 F 40 L 18 135/96 94 04/08/17 06:00 99.1 F H 89 19 128/77 94 04/08/17 05:50 99.1 F H 92 H 18 93 04/08/17 05:01 100.2 F H 92 H 20 129/65 96 04/08/17 05:00 93 H 20 95 04/08/17 04:18 137 H 20 102/65 94 04/08/17 04:01 101.8 F H 143 H 20 109/66 94 04/08/17 03:00 107 H 30 H 95 04/08/17 02:46 102.0 F H 04/08/17 02:00 101.1 F H 99 H 23 H 134/73 94 04/08/17 01:00 100.1 F H 108 H 32 H 134/73 99 04/08/17 00:22 95 H 24 H 94 04/08/17 00:00 99.9 F H 98 H 25 H 119/75 94 04/07/17 23:40 88 L 04/07/17 23:18 96 H 27 H 90 04/07/17 23:17 97 H 28 H 90 04/07/17 23:15 100 H 27 H 90 04/07/17 23:10 90 25 H 04/07/17 23:00 28 H 92 04/07/17 22:42 100.0 F H 04/07/17 22:22 88 L 04/07/17 22:00 100.1 F H 91 H 24 H 107/59 92 04/07/17 21:57 100.1 F H 04/07/17 21:00 100.4 F H 24 H 92 04/07/17 20:19 89 L 04/07/17 20:00 99.8 F H 95 H 26 H 118/67 118/67 92 04/07/17 19:37 90 27 H 04/07/17 19:00 99.3 F H 29 H 92 04/07/17 18:20 93 04/07/17 18:00 99.1 F H 90 24 H 120/62 120/62 92 04/07/17 16:01 99.8 F H 24 H 120/70 90 04/07/17 15:59 99.6 F H 04/07/17 15:14 99.3 F H 04/07/17 15:00 96 H 26 H 04/07/17 14:01 99.1 F H 96 H 26 H 123/74 97 04/07/17 13:05 99.0 F H 98 H 23 H 92 Intake and Output 04/07/17 04/08/17 04/08/17 21:59 05:59 13:59 Intake Total 335 / 335 915 / 915 649 / 649 Output Total 525 / 525 900 / 900 325 / 325 Balance -190 / -190 324 / 324 Intake: IV 115 / 115 615 / 615 469 / 469 Cancidas 70 mg In Sodium 250 / 250 Chloride 0.9% 250 ml @ 250 mls/hr IV ONCE ONE Rx #:[id number] Zosyn 3.375 gm In 50 / 50 50 / 50 50 / 50 Dextrose 5% in Water 50 ml @ 100 mls/hr IV Q6H [facility] Rx#:[id number] Vancomycin 2,000 mg In 500 / 500 104 / 104 Sodium Chloride 0.9% 500 ml @ 250 mls/hr IV Q12 [facility] Rx#:[id number] Oral 220 / 220 300 / 300 180 / 180 Output: Urine Catheter Amount 525 / 525 650 / 650 325 / 325 Stool 250 / 250 Other: Meal Lunch Dinner Percent of Meal Consumed 50% 0% Feeding Ability Independent Weight 220 lb Additional comments: Constitutional; febrile in mild resp distress of bipap, comfortable on bipap. Eyes- No icterus, , No periorbital swelling Ears- Ext ear normal, hearing normal to conversation. Neck- Midline trachea, supple Respiratory system: Air Entry equal on both sides, No crackles or wheezing, no rhonchi. CVS- Rate tachycardic, irregular rhythm , S1,S2 heard, no gallop, no rub. Abdomen- Soft nontender abdomen, no organomegaly, no tenderness, no guarding or rigidity, [employer]- AOOx3, moving all extremities, no gross focal deficit noted. Transfer Discharge Sum: Data Procedures and tests throughout hospitalization: Pending Orders 04/04/17 21:40 Blood Culture Urgent 04/05/17 03:20 Sosa [Indwelling Urinary Catheter] CONT 04/05/17 07:45 Speech Therapy Eval & Treat .Routine 04/05/17 11:40 Acetaminophen [Ofirmev] 650 mg in 65 ml IV Q6HP 04/05/17 15:49 Cooling measures ONCE 04/05/17 16:15 BIPAP .CONTINUOUS 04/05/17 17:00 Blood Culture Stat 04/06/17 13:15 Stool Culture and EHEC Urgent 04/06/17 14:00 0.9 % Sodium Chloride [Saline Flush] 10 ml IV Q8 04/06/17 14:18 Fungus ID Mold Urgent 04/06/17 14:46 Psyllium Husk [Metamucil] 6 gm PO DAILY 04/06/17 14:48 Fungal AB Panel Urgent 04/07/17 09:00 Vancomycin 2,000 mg 0.9 % Sodium Chloride [Sodium Chloride 0.9%] 500 ml IV Q12 Verapamil [Calan Sr] 240 mg PO DAILY 04/07/17 12:00 Quantiferon TB-GOLD Urgent 04/07/17 18:26 Communication order ONCE 04/08/17 09:00 Metoprolol Tartrate [Lopressor] 25 mg PO QDAY 04/08/17 09:13 Potassium Chloride 40 meq Dextrose 5% in Water 500 ml IV ONCE 04/08/17 10:15 Diltiazem [Cardizem] 125 mg 0.9 % Sodium Chloride [Sodium Chloride 0.9%] 100 ml IV Q12H 04/08/17 11:30 Voriconazole [Voriconazole 200Mg IV] 600 mg 0.9 % Sodium Chloride [Sodium Chloride 0.9%] 190 ml IV ONCE 04/08/17 15:00 Basic Metabolic Panel Urgent 04/09/17 10:00 Caspofungin Acetate [Cancidas] 50 mg 0.9 % Sodium Chloride [Sodium Chloride 0.9%] 250 ml IV Q24H Transfer Discharge Sum: A/P - Problem Maintenance (1) Aspergillosis, with pneumonia Status: Acute (5) Community acquired pneumonia Status: Acute Quality Measure Queries - VTE Deep Vein Thrombosis/Pulmonary Embolism Present on Admission: No
[2017-04-09] MEDS ORDERED: CASPOFUNGIN ACETATE 50 MG in 0.9 % SODIUM CHLORIDE 250 ML IV SCH (10:00)
== END 2017-04-08 13:14 | disposition short-term general hospital (02) | DRG 871 ==
LOC: ED 16:18 → ICU 21:05 → SUATTDRO 21:09 → ICU 21:09
PROVIDERS: ADMIT Internal Medicine; ATTEND Internal Medicine